=== PATIENT | female | born 2005 | race Caucasian/White ===

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

== ENCOUNTER 2023-06-07 12:31 | Outpatient (REF) | payer OTHER, SELFPAY ==
[2023-06-07 15:21] LABS: Alanine Aminotransferase 13 U/L (0-31); Albumin Level 4.8 g/dL (3.5-5.0); Alkaline Phosphatase 66 U/L (39-117); Anion Gap 13 (12-20); Aspartate Amino Transferase 18 U/L (5-31); Bilirubin Direct 0.5 mg/dL (0.0-0.5); Bilirubin Total 1.3 mg/dL (0.0-1.0); Blood Urea Nitrogen 9 mg/dL (9-16); Carbon Dioxide 25 mmol/L (22-29); Chloride 105 mmol/L (96-108); Estimated Glomerular Filt Rate > 60; Glucose Random 70 mg/dL (60-115); Potassium 3.7 mmol/L (3.3-5.1); Sodium 139 mmol/L (135-145); Total Protein 7.9 g/dL (6.5-8.0)
== END 2023-06-07 12:32 | disposition home or self-care (01) ==
LOC: HO.CHCLDS 12:31
PROVIDERS: Visit Provider Nurse Practitioner Primary Care
DX: Z00.00 Encounter for general adult medical examination without abnormal findings (principal); R79.89 Other specified abnormal findings of blood chemistry
CPT/HCPCS: 36415; 80048; 80076

== ENCOUNTER 2023-07-26 14:28 | Outpatient (REF) | payer MEDICAID, SELFPAY ==
[2023-07-26 18:23] LABS: Alanine Aminotransferase 16 U/L (0-31); Albumin Level 4.6 g/dL (3.5-5.0); Alkaline Phosphatase 58 U/L (39-117); Aspartate Amino Transferase 20 U/L (5-31); Bilirubin Direct 0.5 mg/dL (0.0-0.5); Bilirubin Total 1.7 mg/dL (0.0-1.0); Cholesterol 144 mg/dL (<200); HDL Cholesterol 63 mg/dL (>40); LDL Cholesterol Calculated 73 mg/dL (<100); Total Protein 7.8 g/dL (6.5-8.0); Triglycerides 40 mg/dL (<150)
[2023-07-27 03:47] LABS: HIV AB/AG Nonreactive (Nonreactive); HIV Num 1 0.04 S/CO (0.00-0.99); ~HepC Num1 0.07 S/CO (0.00-0.79); ~Hepatitis C Antibody Nonreactive (Nonreactive)
[2023-07-27 06:58] LABS: CT PCR NOT DETECTED (Not Detect.); NG PCR NOT DETECTED (Not Detect.)
== END 2023-07-26 14:29 | disposition home or self-care (01) ==
LOC: HO.CHCLDS 14:28
PROVIDERS: Visit Provider Family Medicine
DX: Z11.4 Encounter for screening for human immunodeficiency virus [HIV] (principal); Z13.30 Encounter for screening examination for mental health and behavioral disorders, unspecified; N93.9 Abnormal uterine and vaginal bleeding, unspecified; E80.6 Other disorders of bilirubin metabolism
CPT/HCPCS: 0353U; 36415; 80061; 80076; 84443; 86803; 87389